=== PATIENT | male | born 1960 | race Caucasian/White ===

== ENCOUNTER 2018-08-18 22:27 | Inpatient (IN) | payer BC ==
[~2018-08-18] VITALS: Ht 167.6 cm; Wt 70.4 kg
[2018-08-18] MEDS ORDERED: CLONIDINE HCL 0.1 MG TAB PO ONE (23:00)
[2018-08-18 23:09] LABS: BASOPHILS # (AUTO) 0.1 (0.0-0.1); BASOPHILS % 0.9 % (0.0-1.0); EOSINOPHILS # (AUTO) 0.2 (0.0-0.4); EOSINOPHILS % 2.3 % (0.0-6.0); HEMATOCRIT 39.8 % (38.2-49.6); HEMOGLOBIN 13.7 g/dL (14.0-18.0); LYMPHOCYTES % 31.9 % (18.0-39.1); MEAN CORPUSCULAR HEMOGLOBIN 29.5 pg (28-32); MEAN CORPUSCULAR HGB CONC 34.4 g/dL (31-35); MEAN CORPUSCULAR VOLUME 85.8 fL (81-99); MONOCYTES # (AUTO) 0.5 (0.2-0.8); MONOCYTES % 4.8 % (4.4-11.3); NEUTROPHILS # (AUTO) 5.6 (2.1-6.9); NEUTROPHILS % 59.6 % (38.7-80.0); PLATELET COUNT 261 x10e3/uL (140-360); RED BLOOD COUNT 4.64 x10e6/uL (4.3-5.7); RED CELL DISTRIBUTION WIDTH 12.9 % (11.7-14.4)
[2018-08-18 23:27] LABS: BACTERIA,URINE RARE /HPF; BILIRUBIN,URINE NEGATIVE (NEGATIVE); CLARITY,URINE CLEAR (CLEAR); COLOR,URINE YELLOW (YELLOW); EPITHELIAL CELLS,URINE FEW /LPF; KETONES,URINE NEGATIVE (NEGATIVE); LEUKOCYTE ESTERASE ,URINE NEGATIVE (NEGATIVE); NITRITE,URINE NEGATIVE (NEGATIVE); PROTEIN,URINE DIPSTICK NEGATIVE (NEGATIVE); RBC,URINE 0-5 /HPF (0-5); URINE UROBILINOGEN 0.2 mg/dL (0.2 - 1); WBC,URINE (MAN) 0-5 /HPF (0-5)
--- NOTE | 2018-08-18 23:31 | Diagnostic Imaging Report ---
EXAM: CHEST 2 VIEWS, PA and lateral INDICATION: Shortness of breath COMPARISON: None FINDINGS: LINES/TUBES: None LUNGS: Emphysematous changes and peripheral reticulations. No consolidations. PLEURA: No effusions or pneumothorax. HEART AND MEDIASTINUM: Normal size and contour. BONES AND SOFT TISSUES: No acute findings. IMPRESSION: No consolidations. Possible chronic interstitial lung disease. Signed by: Dr. Darline Polanco M.D. on 08/18/2018 11:28 PM
--- NOTE | 2018-08-18 23:37 | NUR ---
repeat ekg done and given to dr sunshine for review
[2018-08-18 23:39] LABS: ALBUMIN 4.1 g/dL (3.5-5.0); ALBUMIN/GLOBULIN RATIO 1.1 (0.8-2.0); ANION GAP 12.4 mmol/L (8-16); CALCIUM 9.5 mg/dL (8.4-10.2); CREATININE, SERUM 1.48 mg/dL (0.72-1.25); MAGNESIUM 2.1 MG/DL (1.3-2.1); POTASSIUM 4.4 mmol/L (3.5-5.1)
[2018-08-18 23:45] LABS: CREATINE KINASE MB 2.8 ng/mL (0-5.0)
[2018-08-18 23:58] LABS: PARTIAL THROMBOPLASTIN TIME 27.5 seconds (23.8-35.5); PROTHROMBIN TIME 14.1 seconds (11.9-14.5)
[2018-08-19] VITALS (8 sets, daily range): BP systolic 147–181; BP diastolic 75–88
[2018-08-19] MEDS ORDERED: SODIUM CHLORIDE 0.9% 1000ML 1,000 ML IV STA (00:17)
[2018-08-19] MEDS ORDERED: SODIUM CHLORIDE 0.9% 1000ML 1,000 ML ONE (00:23)
[2018-08-19] MEDS ORDERED: IOPAMIDOL 370 MG/ML 200 ML INFUS..BTL INJ ONE ×2 (00:38→03:28)
[2018-08-19] MEDS ORDERED: SODIUM CHLORIDE 0.9% 50ML 50 ML ONE ×2 (00:38→03:28)
--- NOTE | 2018-08-19 01:53 | Diagnostic Imaging Report ---
EXAM: CT CHEST W INDICATION: Shortness of breath, positive d-dimer COMPARISON: None TECHNIQUE: Multidetector CT scanning of the chest was performed. Coronal and sagittal multiplanar reformations were obtained. Dose modulation, iterative reconstruction, and/or weight based adjustment of the mA/kV was utilized to reduce the radiation dose to as low as reasonably achievable. PE protocol performed. IV Contrast: 100 cc Isovue 370 CTDIvol has been reviewed. It is below the limits set by the Radiation Protocol Committee (RPC). FINDINGS: LUNGS AND AIRWAYS: The trachea and major bronchi are unremarkable. Bilateral smooth interlobular septal thickening. Faint groundglass opacities. Rounded nodular density in the left lung base measuring 1 cm. PLEURA: Trace right pleural effusion. HEART, MEDIASTINUM, VESSELS: The heart is within normal size limits. No abnormal pericardial effusion. No thoracic aortic aneurysm. Partially calcified subcarinal lymph node measuring 1.5 cm in short diameter. Several subcentimeter mediastinal and prevascular lymph nodes. The main pulmonary artery is within normal size limits. No evidence of a pulmonary embolism. UPPER ABDOMEN: Marked atherosclerotic disease of the partially visualized infrarenal abdominal aorta. The right kidney is smaller than the left kidney, partially visualized. There is a 1.6 cm exophytic cyst posterior medial aspect of the left kidney superior pole. MUSCULOSKELETAL: No acute findings. IMPRESSION: 1. No evidence of a pulmonary embolism. 2. Mild edema and trace right pleural effusion. 3. Left lower lobe nodular density measuring 1 cm is indeterminate for rounded atelectasis or true pulmonary nodule. A follow-up CT of the chest, low-dose protocol without IV contrast is recommended in 3 months. 4. Nonspecific prominent mediastinal lymphoid tissue. Signed by: Dr. Darline Polanco M.D. on 08/19/2018 1:50 AM
[2018-08-19] MEDS: NITROGLYCERIN 2% OINT 1 GM PKT TOP SCH ×2 (02:29→05:22)
[2018-08-19] MEDS ORDERED: NITROGLYCERIN 2% OINT 1 GM PKT ONE (02:30)
[2018-08-19] MEDS ORDERED: ACETAMINOPHEN 325 MG TAB PO PRN (02:30)
[2018-08-19] MEDS ORDERED: ONDANSETRON HCL INJ 2MG/ML 2ML 2 MG/ML VIAL IV PRN (03:00)
[2018-08-19] MEDS ORDERED: MORPHINE SULFATE 2 MG/ML SYR 1ML IV PRN (03:00)
--- OUTSIDE RECORDS SUMMARY | 2018-08-19 03:05 | XMS REPORT ---
Author Author [facility] Address Unknown Phone Unavailable Care Team Providers Care Market Research Interviewer Name Role Phone Makenzie CASTELLON Unavailable Unavailable Problems This patient has no known problems. Allergies, Adverse Reactions, Alerts This patient has no known allergies or adverse reactions. Medications This patient has no known medications. Results Test Description Test Time Test Comments Text Results Atomic Results Result Comments CT CHEST W 2018-08-19 01:36:00 [place] [id number] [place] [id number] Patient Name: KARI TRIPATHI MR #: [id number] : 1960 Age/Sex: 58/M Req #: [id number] Adm Physician: Ordered by: HARRIS CASTELLON MD Report #: [id number] Location: ER Room/Bed: Procedure: [id number] CT/CT CHEST W Exam Date: Exam Time: REPORT STATUS: Signed EXAM: CT CHEST W INDICATION: Shortness of breath, positive d-dimer COMPAR MOUNA: None TECHNIQUE: Multidetector CT scanning of the chest was performed. Coronal and sagittal multiplanar reformations were obtained. Dose modulation, iterative reconstruction, and/or weight based adjustment of the mA/kV was utilized to reduce the radiation dose to as low as reasonably achievable. PE protocol performed. IV Contrast: 100 cc Isovue 370 CTDIvol has been reviewed. It is below the limits set by the Radiation Protocol Committee (RPC). FINDINGS: LUNGS AND AIRWAYS: The trachea and major bronchi are unremarkable. Bilateral smooth interlobular septal thickening. Faint groundglass opacities. Rounded nodular density in the left lung base measuring 1 cm. PLEURA: Trace right pleural effusion. HEART, MEDIASTINUM, VESSELS: The heart is within normal size limits. No abnormal pericardial effusion. No thoracic aortic aneurysm. Partially calcified subcarinal lymph node measuring 1.5 cm in short diameter. Several subcentimeter mediastinal and prevascular lymph nodes. The main pulmonary artery is within normal size limits. No evidence of a pulmonary embolism. UPPER ABDOMEN: Marked atherosclerotic disease of the partially visualized infrarenal abdominal aorta. The right kidney is smaller than the left kidney, partially visualized. There is a 1.6 cm exophytic cyst posterior medial aspect of the left kidney superior pole. MUSCULOSKELETAL: No acute findings. IMPRESSION: 1. No evidence of a pulmonary embolism. 2. Mild edema and trace right pleural effusion. 3. Left lower lobe nodular density measuring 1 cm is indeterminate for rounded atelectasis or true pulmonary nodule. A follow-up CT of the chest, low-dose protocol without IV contrast is recommended in 3 months. 4. Nonspecific prominent mediastinal lymphoid tissue. Signed by: Dr. Aleksandr Ladd M.D. on 08/19/2018 1:50 AM Dictated By: ALEKSANDR LADD MD 9 Transcribed By: LAKSHMI on 08/19/18149 COPY TO: HARRIS CASTELLON MD CHEST 2 VIEWS 2018-08-18 23:27:00 [place] [address] Patient Name: KARI TRIPATHI MR #: [id number] : 1960 Age/Sex: 58/M Req #: [id number] Adm Physician: Ordered by: HARRIS CASTELLON MD Report #: [id number] Location: Room/Bed: Procedure: [id number] DX/CHEST 2 VIEWS Exam Date: 08/18/18 Exam Time: 2319 REPORT STATUS: Signed EXAM: CHEST 2 VIEWS, PA and lateral INDICATION: Shortness of breath COMPARISON: None FINDINGS: LINES/TUBES: None LUNGS: Emphysematous changes and peripheral reticulations. No consolidations. PLEURA: No effusions or pneumothorax. HEART AND MEDIASTINUM: Normal size and contour. BONES AND SOFT TISSUES: No acute findings. IMPRESSION: No consolidations. Possible chronic interstitial lung disease. Signed by: Dr. Aleksandr Ldad M.D. on 08/18/2018 11:28 PM Dictated By: ALEKSANDR LADD MD 27 Transcribed By: LAKSHMI on 08/18/182327 COPY TO: HARRIS CASTELLON MD
--- NOTE | 2018-08-19 03:35 | NUR ---
PT ARRIVING TO UNIT VIA WHEEL CHAIR, PT ALERT AND ORIENTED , NO DISTRESS NOTED, TELEMETRY NOTED, BED LOCKED AND LOW, PT DENIES NEEDS, CALL LIGHT IN REACH, INSTRUCTED TO CALL WITH NEEDS
--- NOTE | 2018-08-19 07:20 | NUR ---
pt resting in bed, no c/o pain or s/s distress noted. FURNITURE SPRAYER on unit.
[2018-08-19] MEDS ORDERED: FUROSEMIDE INJ 10 MG/ML 4 ML VIAL IV ONE (08:00)
[2018-08-19 08:49] LABS: CREATINE KINASE MB 2.4 ng/mL (0-5.0)
[2018-08-19] MEDS: FAMOTIDINE 20 MG/2 ML VIAL IV SCH ×2 (08:59→17:00)
[2018-08-19] MEDS: ASPIRIN 81 MG ENTERIC COATED PO SCH (08:59)
[2018-08-19] MEDS: METOPROLOL TARTRATE 25 MG TAB PO SCH ×2 (08:59→17:01)
[2018-08-19] MEDS ORDERED: AMLODIPINE BESYLATE 10 MG TAB PO SCH (09:00)
--- NOTE | 2018-08-19 09:14 | Consultation ---
DATE OF CONSULTATION: August 19, 2018 CARDIOLOGY CONSULTATION REASON FOR CONSULTATION: Heart failure. HISTORY OF PRESENT ILLNESS: This is a 58-year-old man with a history of tobacco use, who does not see physicians regularly, who presented to the emergency room with progressive worsening shortness of breath and hypertensive urgency. The patient states that he has had progressive worsening shortness of breath for the past 1 week, mild to moderate in intensity, worse with exertion. No associated chest pain, orthopnea, PND, or lower extremity swelling. The patient's checked his blood pressure and it was elevated and sent to the emergency department. Upon arrival here, the patient had systolic reading of 222. His first set of cardiac enzymes were within normal limits. REVIEW OF SYSTEMS: A 12-point review of systems was conducted, and was negative other than what is mentioned above in the HPI. PAST MEDICAL HISTORY: Tobacco use. PAST SURGICAL HISTORY: None recent. PAST FAMILY HISTORY: No premature coronary artery disease or sudden cardiac . SOCIAL HISTORY: No illicit drug use or alcohol use. Tobacco use currently. ALLERGIES: NO KNOWN DRUG ALLERGIES. MEDICATIONS: See medication reconciliation form. PHYSICAL EXAMINATION VITALS: Temperature is 97.9, heart rate is 65, respirations are 16, blood pressure is 158/76, oxygen saturation 94% on room air. GENERAL: He is a well-appearing middle-aged male in no apparent distress. HEENT: Head is normocephalic and atraumatic. Eyes: Extraocular muscles are intact. Conjunctivae are clear. NECK: No JVD. No bruits. CARDIOVASCULAR: Regular rate and rhythm. No murmurs appreciated. LUNGS: Diminished breath sounds at bilateral bases with scattered rales. ABDOMEN: Soft, nontender and nondistended. EXTREMITIES: No edema. VASCULAR: Diminished pulses. SKIN: Warm, dry and intact. NEUROLOGIC: No focal deficits noted. Cranial nerves grossly intact. PSYCHIATRIC: Normal mood and affect. LABORATORY DATA: Reviewed. Sodium 130, creatinine 1.48. BNP is 573. Troponin I is 0.042. A 12-lead EKG shows sinus tachycardia and left ventricular hypertrophy with repolarization abnormalities. CT of the chest showed mild edema, trace right pleural effusion. No evidence of pulmonary embolism. IMPRESSION 1. Congestive heart failure, unknown type. 2. Hypertensive urgency. 3. Chronic kidney disease. 4. Hyponatremia. 5. Abnormal electrocardiogram. 6. Tobacco abuse. RECOMMENDATIONS: The patient likely has acute pulmonary edema due to his hypertensive urgency. Amlodipine has been started, and will avoid nephrotoxic agents at this point in time. Will start Lasix for diuresis. Continue to trend cardiac enzymes. The patient has a 12-lead electrocardiogram showing left ventricular hypertrophy with strain pattern. No evidence of acute coronary syndrome ongoing. Smoking cessation is advised. A 2-D echocardiogram has been ordered. Will review this once it has been resulted. Job#: [id number] ALEX
--- NOTE | 2018-08-19 10:47 | NUR ---
SOCIAL WORK INITIAL ASSESSMENT Route Delivery Supervisor to bedside to discuss plan of care with patient/family. CM/SW role and care transitions discussed. Anticipated discharge plan discussed along with duration of care. CM/SW discussed patients right to make decisions in care. CM/SW work hours given. 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 Name and number was also written on the patients whiteboard. Patient verbalized understanding of discussion. CM will follow-up with ongoing discharge and transition of care needs.
[2018-08-19] MEDS ORDERED: NIFEDIPINE CR 30 MG TAB PO SCH (13:00)
--- NOTE | 2018-08-19 14:52 | NUR ---
Nutrition Screen Note RD Recommendation for Physician: -Continue cardiac diet as ordered Plan of Care: RD following, monitoring for tolerance and adequacy Nutrition reason for involvement: Nutrition Risk Trigger MST Primary Diagnose(s): 1. Congestive heart failure, unknown type. 2. Hypertensive urgency. PMH: CKD, tobacco use Ht: 66in Wt: 154.25lb BMI: 24.9kg/m2 IBW: 142lb RD Assessment: (08/19) Chart reviewed. Labs and meds reviewed. 58yo M, who is admitted for SOB and hypertensive urgency. Visited pt in the room. Pt reports good appetite with ~50-75% meal intake. 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 No GI complains noted. LBM 08/18, normal per pt. Pt denies any chewing or swallowing difficulty. No hx of DM. Will continue to monitor and follow. Current Diet: cardiac diet Malnutrition Evaluation (08/19/2018) The patient does not meet criteria for a specified degree of malnutrition at this time. Will re-evaluate at follow-up as appropriate. Diet Education Needs Assessment: Diet education not indicated. Nutrition Care Level: low Signed: Moira Arias, MS, RD, LD
[2018-08-19 15:50] LABS: CREATINE KINASE MB 1.6 ng/mL (0-5.0)
[2018-08-19] MEDS: FUROSEMIDE 20 MG TAB PO SCH (17:01)
--- NOTE | 2018-08-19 17:20 | NUR ---
Received patient via wheelchair from obs. AAOX4 to time,person, place, situation. Respirations even and unlabored. Tele #[phone] [id number]. Oriented patient to room. Instructed patient to use call light for assistance. Voiced understanding. Will continue to monitor.
--- NOTE | 2018-08-19 18:42 | NUR ---
Resting in bed, family at bedside. No s/s of acute distress noted. Report to be given to oncoming nurse.
--- NOTE | 2018-08-19 19:43 | NUR ---
Patient received lying in bed. Family at bedside. AAO x 3. Patient had no complaints of pain. Respirations even and non-labored. Fall precautions maintained. Patient instructed to call for assistance when needed. Call light within reach.
[2018-08-20] VITALS (9 sets, daily range): BP systolic 148–170; BP diastolic 72–87
[2018-08-20 04:14] LABS: BASOPHILS # (AUTO) 0.1 (0.0-0.1); BASOPHILS % 0.9 % (0.0-1.0); EOSINOPHILS # (AUTO) 0.3 (0.0-0.4); EOSINOPHILS % 2.7 % (0.0-6.0); HEMOGLOBIN 12.8 g/dL (14.0-18.0); LYMPHOCYTES # (AUTO) 3.1 (1.0-3.2); LYMPHOCYTES % 30.9 % (18.0-39.1); MEAN CORPUSCULAR HEMOGLOBIN 29.3 pg (28-32); MEAN CORPUSCULAR HGB CONC 34.6 g/dL (31-35); MEAN CORPUSCULAR VOLUME 84.7 fL (81-99); MONOCYTES # (AUTO) 0.7 (0.2-0.8); MONOCYTES % 6.5 % (4.4-11.3); NEUTROPHILS % 58.5 % (38.7-80.0); PLATELET COUNT 270 x10e3/uL (140-360); RED BLOOD COUNT 4.37 x10e6/uL (4.3-5.7)
[2018-08-20 04:31] LABS: ALBUMIN 3.5 g/dL (3.5-5.0); ALBUMIN/GLOBULIN RATIO 1.1 (0.8-2.0); CALCIUM 9.1 mg/dL (8.4-10.2); CHOL/HDL RATIO 6.3 (3.9-4.7); CREATININE, SERUM 1.72 mg/dL (0.72-1.25)
[2018-08-20] MEDS: FUROSEMIDE 20 MG TAB PO SCH ×2 (06:22→16:35)
--- NOTE | 2018-08-20 07:18 | NUR ---
Patient resting comfortably. Report given to oncoming nurse.
[2018-08-20] MEDS: ASPIRIN 81 MG ENTERIC COATED PO SCH (08:40)
[2018-08-20] MEDS: FAMOTIDINE 20 MG/2 ML VIAL IV SCH ×2 (08:40→16:35)
[2018-08-20] MEDS ORDERED: LOPRESSOR25 MG PO (08:41)
[2018-08-20] MEDS: METOPROLOL TARTRATE 25 MG TAB PO SCH (08:41)
[2018-08-20] MEDS ORDERED: NIFEDIPINE ER30 M1 PO (08:41)
[2018-08-20] MEDS ORDERED: ASPIRIN EC81 MG PO (08:41)
[2018-08-20] MEDS ORDERED: K DUR10 MEQ PO (08:41)
[2018-08-20] MEDS ORDERED: FUROSEMIDE20 MG PO (08:41)
[2018-08-20] MEDS ORDERED: NIFEDIPINE CR 30 MG TAB PO SCH ×2 (09:00)
[2018-08-20] MEDS: POTASSIUM CHLORIDE 10MEQ EA PO SCH (09:00)
[2018-08-20] MEDS ORDERED: FUROSEMIDE 20 MG TAB PO SCH (09:00)
[2018-08-20] MEDS ORDERED: POTASSIUM CHLORIDE 10MEQ EA PO SCH (09:00)
--- NOTE | 2018-08-20 12:39 | Progress Note ---
DATE: CARDIOLOGY PROGRESS NOTE SUBJECTIVE: Patient is without any symptoms this morning. He states that he does not have any shortness of breath, palpitations, cough, or dizziness. OBJECTIVE VITAL SIGNS: Temperature 97.5, pulse 60, respiratory rate 20, blood pressure 169/85, oxygen saturation 97% on room air. GENERAL: Alert and oriented x3, resting comfortably on the side of the bed with no distress. NECK: Supple. No JVD noted. CARDIOVASCULAR: Regular rate and rhythm. Systolic ejection murmur present. No S3 or S4 auscultated. No gallop. LUNGS: Clear to auscultation throughout. No wheezing. No rhonchi or crackles. ABDOMEN: Soft, nontender. EXTREMITIES: Lower extremities, no edema. 2+ pedal pulses. CARDIOVASCULAR MEDICATIONS 1. Nifedipine 60 mg p.o. daily. 2. Metoprolol 25 p.o. b.i.d. 3. Aspirin 81 mg p.o. daily. 4. Lasix 40 p.o. b.i.d. 5. Metoprolol 2.5 q.6 hours p.r.n. LABS: WBC 10.17, hemoglobin 12.8, hematocrit 37.0, platelet 270. Sodium 133, potassium 4.0, BUN 19, creatinine 1.72, glucose 98, calcium 9.1, magnesium 2.2. BNP 392.9. AST 13, ALT 11, alkaline phosphatase 89, LDL 137, HDL 31, total cholesterol 194. TELEMETRY: Sinus bradycardia. IMPRESSION 1. Systolic heart failure with ejection fraction of 30% to 35%. 2. Hypertensive urgency. 3. Chronic kidney disease with worsening creatinine. 4. Hyponatremia. 5. Abnormal electrocardiogram. 6. Tobacco use. RECOMMENDATIONS 1. Up titrate nifedipine. 2. Transition to metoprolol succinate upon discharge. 3. Consider LifeVest on discharge given low ejection fraction. This patient will need a left heart cath with findings of acute heart failure. We will continue to monitor very closely. Dictated by: Tosha Winston NP Job#: [id number] JULIA
[2018-08-20] MEDS: NICOTINE 14 MG/EA PATCH TOP SCH (16:33)
[2018-08-20] MEDS: SPIRONOLACTONE 25 MG TAB PO SCH (16:35)
--- NOTE | 2018-08-20 19:25 | NUR ---
Patient received sitting in bed. Family at bedside. AAO x 3. No acute distress noted. Call light within reach.
[2018-08-20] MEDS: METOPROLOL TARTRATE INJ 1 MG/ML VIAL IV PRN (21:41)
[2018-08-21] VITALS (7 sets, daily range): BP systolic 144–175; BP diastolic 68–83
--- NOTE | 2018-08-21 03:08 | NUR ---
Patient's BP elevated (165/75) with HR of 58 (patient 's HR usually runs low) . Dr. Fuchs notified. New order received.
[2018-08-21] MEDS: HYDRALAZINE HCL 20 MG/ML VIAL IV PRN ×2 (03:40→21:12)
[2018-08-21 04:00] LABS: BASOPHILS # (AUTO) 0.1 (0.0-0.1); BASOPHILS % 0.7 % (0.0-1.0); EOSINOPHILS # (AUTO) 0.2 (0.0-0.4); EOSINOPHILS % 2.4 % (0.0-6.0); HEMATOCRIT 36.6 % (38.2-49.6); LYMPHOCYTES # (AUTO) 2.7 (1.0-3.2); LYMPHOCYTES % 30.5 % (18.0-39.1); MEAN CORPUSCULAR HEMOGLOBIN 29.5 pg (28-32); MEAN CORPUSCULAR HGB CONC 35.5 g/dL (31-35); MONOCYTES # (AUTO) 0.5 (0.2-0.8); MONOCYTES % 6.1 % (4.4-11.3); NEUTROPHILS # (AUTO) 5.2 (2.1-6.9); NEUTROPHILS % 59.8 % (38.7-80.0); PLATELET COUNT 247 x10e3/uL (140-360); RED BLOOD COUNT 4.41 x10e6/uL (4.3-5.7); RED CELL DISTRIBUTION WIDTH 12.6 % (11.7-14.4)
[2018-08-21 04:20] LABS: ANION GAP 13.8 mmol/L (8-16); CALCIUM 8.9 mg/dL (8.4-10.2); CREATININE, SERUM 1.68 mg/dL (0.72-1.25); MAGNESIUM 2.1 MG/DL (1.3-2.1); POTASSIUM 3.8 mmol/L (3.5-5.1)
[2018-08-21] MEDS: METOPROLOL TARTRATE INJ 1 MG/ML VIAL IV PRN (06:13)
[2018-08-21] MEDS: FUROSEMIDE 20 MG TAB PO SCH ×2 (06:27→17:50)
[2018-08-21] MEDS ORDERED: NIFEDIPINE CR 30 MG TAB PO SCH (09:00)
[2018-08-21] MEDS: ASPIRIN 81 MG ENTERIC COATED PO SCH (09:23)
[2018-08-21] MEDS: LISINOPRIL 20 MG TAB PO SCH (09:23)
[2018-08-21] MEDS: SPIRONOLACTONE 25 MG TAB PO SCH (09:23)
[2018-08-21] MEDS: METOPROLOL SUCCINATE 25 MG TAB XL PO SCH (09:25)
[2018-08-21] MEDS: FAMOTIDINE 20 MG/2 ML VIAL IV SCH ×2 (09:26→17:50)
[2018-08-21] MEDS: POTASSIUM CHLORIDE 10MEQ EA PO SCH (09:26)
--- NOTE | 2018-08-21 11:30 | Progress Note ---
DATE CARDIOLOGY PROGRESS NOTE SUBJECTIVE: The patient does endorse paroxysmal nocturnal dyspnea yesterday that woke him up. Denies any shortness of breath now or chest pain. OBJECTIVE VITAL SIGNS: Temperature 96.4, pulse 60, respiratory rate 20, blood pressure 159/74, oxygen saturation 94% on room air. GENERAL: Alert and oriented x3, resting comfortably in bed. Does not appear to be in any acute distress. LUNGS: Clear to auscultation throughout. No wheezing, no rhonchi or crackles. CARDIOVASCULAR: Regular rate and rhythm. Systolic ejection murmur present. S3 noted. ABDOMEN: Soft, nontender. EXTREMITIES: Lower extremity no edema, 2+ pedal pulses. CARDIOVASCULAR MEDICATIONS 1. Metoprolol succinate 25 mg p.o. daily. 2. Lisinopril 20 mg p.o. daily. 3. Aldactone 50 mg p.o. daily. 4. Aspirin 81 mg p.o. daily. 5. Lasix 20 mg p.o. b.i.d. LABS: WBC 8.72, hemoglobin 13.3, hematocrit 36.6, platelets 247. Sodium 132, potassium 3.8, creatinine 1.68, GFR 42. BNP 479.5. TELEMETRY: Sinus antonella. IMPRESSION 1. Systolic heart failure with ejection fraction of 30 to 35%. 2. Hypertensive urgency on admission. 3. Chronic kidney disease. 4. Hyponatremia. 5. Abnormal electrocardiogram. 6. Tobacco use. RECOMMENDATION: Continue optimization of heart failure management. Maintain inpatient. This patient will need a LifeVest upon discharge. Patient will also need a diagnostic heart cath given acute systolic heart failure. Discontinue Procardia again today. Maintain on telemetry. Monitor electrolytes and replace as needed. We will continue to follow this patient very closely. Dictated by: Tosha Winston NP Job#: [id number] JULIA
--- NOTE | 2018-08-21 21:40 | NUR ---
Patient instructed about NPO status after midnight due to Left Heart Catheterization. Patient verbalized understanding.
--- NOTE | 2018-08-21 21:40 | NUR ---
Patient instructed about NPO status after midnight due to EGD/Colonoscopy. Patient verbalized understanding. Addendum: 08/22/18 at 0648 by Theodora Jackson RN Entry for wrong patient.
[2018-08-22] VITALS (12 sets, daily range): BP systolic 145–174; BP diastolic 64–81
[2018-08-22 03:56] LABS: BASOPHILS # (AUTO) 0.1 (0.0-0.1); BASOPHILS % 0.7 % (0.0-1.0); EOSINOPHILS # (AUTO) 0.2 (0.0-0.4); EOSINOPHILS % 2.7 % (0.0-6.0); HEMATOCRIT 35.5 % (38.2-49.6); HEMOGLOBIN 12.6 g/dL (14.0-18.0); LYMPHOCYTES # (AUTO) 2.9 (1.0-3.2); LYMPHOCYTES % 32.5 % (18.0-39.1); MEAN CORPUSCULAR HEMOGLOBIN 29.4 pg (28-32); MEAN CORPUSCULAR HGB CONC 35.5 g/dL (31-35); MEAN CORPUSCULAR VOLUME 82.8 fL (81-99); MONOCYTES # (AUTO) 0.5 (0.2-0.8); MONOCYTES % 5.8 % (4.4-11.3); NEUTROPHILS # (AUTO) 5.2 (2.1-6.9); NEUTROPHILS % 57.9 % (38.7-80.0); PLATELET COUNT 252 x10e3/uL (140-360); RED BLOOD COUNT 4.29 x10e6/uL (4.3-5.7); RED CELL DISTRIBUTION WIDTH 12.7 % (11.7-14.4)
[2018-08-22 04:15] LABS: ANION GAP 11.5 mmol/L (8-16); CALCIUM 8.5 mg/dL (8.4-10.2); CREATININE, SERUM 1.81 mg/dL (0.72-1.25); MAGNESIUM 2.2 MG/DL (1.3-2.1); POTASSIUM 3.5 mmol/L (3.5-5.1)
[2018-08-22] MEDS: FUROSEMIDE 20 MG TAB PO SCH ×2 (05:07→17:32)
[2018-08-22] MEDS ORDERED: SODIUM CHLORIDE 1 GM TAB PO ONE (08:00)
[2018-08-22] MEDS ORDERED: VERAPAMIL HCL 2.5 MG/ML 2 ML VIAL ONE (08:45)
[2018-08-22] MEDS ORDERED: IOPAMIDOL 370 MG/ML 200 ML INFUS..BTL INJ ONE (08:46)
[2018-08-22] MEDS ORDERED: HEPARIN SOD/SOD CHLORIDE 2,000 ML ONE (08:46)
[2018-08-22] MEDS ORDERED: LIDOCAINE HCL 1% LOCAL INJ 20 ML VIAL ONE (08:46)
[2018-08-22] MEDS ORDERED: FENTANYL CITRATE/PF 100MCG/2 ML INJ ONE (08:46)
[2018-08-22] MEDS ORDERED: MIDAZOLAM HCL 2 MG/2 ML VIAL ONE (08:46)
[2018-08-22] MEDS: LISINOPRIL 20 MG TAB PO SCH (08:52)
[2018-08-22] MEDS: FAMOTIDINE 20 MG/2 ML VIAL IV SCH ×2 (08:52→09:06)
[2018-08-22] MEDS: SPIRONOLACTONE 25 MG TAB PO SCH (09:00)
[2018-08-22] MEDS: ASPIRIN 81 MG ENTERIC COATED PO SCH (09:00)
--- NOTE | 2018-08-22 10:19 | NUR ---
patient up in bed, denies any pain , NPO, No distress noted, Dr Acharya had rounds, new orders in computer
--- NOTE | 2018-08-22 10:38 | NUR ---
patient off the unit for procedure, Alert with no distress
--- NOTE | 2018-08-22 12:39 | Consultation ---
DATE OF CONSULTATION: August 22, 2018 NEPHROLOGY CONSULTATION REASON FOR CONSULTATION: Hyponatremia. HPI: This is a 58-year-old male who came into the ED with underlying shortness of breath and found to be in hypertensive urgency. The patient reports having progressive shortness of breath over the past 1 week. While here, the patient was being treated for CHF exacerbation newly diagnosed. He is scheduled to have a left heart catheterization today. Nephrology consulted for hyponatremia. The patient denies any [id number] NSAIDs or herbal supplements. Denies drinking a lot of alcohol. No reports of hypothyroidism. The patient is not on any antipsychotics or antidepressant medications. The patient was seen and evaluated at bedside. Yesterday, he reports drinking about 4 to 5 liters of water. He has never had hyponatremia before. REVIEW OF SYSTEMS PERTINENT POSITIVES: Shortness of breath, edema. PERTINENT NEGATIVES: Denies any chest pain, palpitations, nausea, vomiting, diarrhea, dysuria, hematuria, frequency, urgency, lightheadedness, dizziness, abdominal pain, headache, cough, congestion, fever or any other complaints. The rest of the 14-point review of systems have been reviewed with the patient and are negative. ALLERGIES: NO KNOWN DRUG ALLERGIES. HOME MEDICATIONS 1. Aspirin 81 mg daily. 2. Furosemide 20 mg b.i.d. 3. Metoprolol 25 mg p.o. b.i.d. 4. Nifedipine ER 50 mg daily. 5. Potassium supplement. PAST MEDICAL HISTORY: He reports none. SURGICAL HISTORY: None. FAMILY HISTORY: Hypertension, diabetes. SOCIAL HISTORY: No drugs. No alcohol. He does smoke. LAB FINDINGS: White count 8.9, hemoglobin 12.6, hematocrit 35, platelets 252. Coagulation: PT 14, INR 1, PTT 27.5. Chemistries: Sodium 123, potassium 3.5, chloride 94, bicarb 21, anion gap 11, BUN 26, creatinine 1.8, magnesium 2.2. Urinalysis was found to be negative. IMAGING STUDIES: CT of the chest showed no evidence of pulmonary embolism. Mild edema and trace right pleural effusion. There is a questionable pulmonary nodule that needs to be further evaluated as an outpatient. Chest x-ray shows some possible chronic interstitial lung disease. PHYSICAL EXAMINATION GENERAL: In no acute distress. Alert and oriented x3, cooperative on examination. HEENT: Head: Normocephalic, atraumatic. Eyes: Pupils equal, round and reactive to light bilaterally. Extraocular movements intact bilaterally. NECK: Supple with good range of motion. Throat: No evidence of any erythema or exudates in the posterior pharynx. Has poor dentition. PULMONARY: Clear to auscultation bilaterally. No wheezing, no rales, no rhonchi, no crackles appreciated. CARDIOVASCULAR: Positive S1, S2. No murmurs, rubs or gallops appreciated. ABDOMEN: Soft, nondistended, nontender to palpation. Bowel sounds present. MUSCULOSKELETAL: Strength is 5/5 throughout. No evidence of any musculoskeletal deficit on examination. No weakness appreciated. NEUROLOGICAL: Cranial nerves II through XII are grossly intact. No evidence of any neurological deficit on exam. SKIN: Intact. Warm to touch. Good capillary refill. PSYCHIATRIC: Normal affect and mood. EXTREMITIES: No edema. Good range of motion throughout. IMPRESSION 1. Polydipsia leading to underlying hyponatremia. 2. Acute exacerbation of congestive heart failure. PLAN AT THIS TIME: The hyponatremia could be multifactorial from polydipsia as well as diuretics. Aldactone is notorious at causing hyponatremia as well. I reviewed his medications even from home. There is no etiology at this time except for the diuretics and polydipsia. We will get urine sodium, urine osmols, serum osmolarity, and serum uric acid. Sodium chloride tablet 2 grams p.o. x1 has been given. Will continue following with the primary team. I ordered a stat sodium level now and discussed with the nurse to tell me what the results are. May need to be on low-dose IV fluids. Job#: [id number]
--- NOTE | 2018-08-22 12:50 | Operative Report ---
DATE OF PROCEDURE: August 22, 2018 INDICATIONS FOR PROCEDURE: Stable angina and abnormal EKG. PREPROCEDURE ASSESSMENT: The patient's medical history, social history, prior experience with anesthesia were reviewed prior to the procedure. Patient was deemed to be an appropriate candidate for moderate sedation. The risks, benefits and alternatives to the procedure were explained to the patient, and informed consent was obtained as documented in the medical record. MEDICATIONS: Please see nursing notes for medications administered during the procedure. PROCEDURES PERFORMED 1. Coronary angiography. 2. Left heart catheterization. PROCEDURE DETAILS: The patient was brought to the cardiac catheterization laboratory in a fasting state. The right wrist was prepped and draped in a sterile fashion. A 6-Persian Slender sheath was inserted into the right radial artery using modified Seldinger technique. Coronary angiography was performed using a Marita 5-Persian radial catheter to engage both the left coronary and right coronary system. Left heart catheterization was performed using the same Marita radial catheter. All catheters were removed over a wire. The case ended without any complications. FINDINGS: Left main coronary artery has 60% to 70% diffuse tubular stenosis of the left main coronary artery with moderate to severe calcification. There is not significant involvement of the ostium of the LAD or left circumflex artery. The LAD is a large vessel that wraps around the apex. It has one significant diagonal-1 that is a large vessel as well. There is 60% to 70% lesion of the proximal portion of diagonal-1 as well as a 70% lesion of the mid LAD. Left circumflex is a large, non-dominant vessel. There is one large OM branch with about 70% proximal lesion. The distal left circumflex provides collaterals to the RCA. The distal LAD also provides collaterals to the RCA. The RCA is a very small vessel, diffusely diseased proximally and quickly ends in a ELECTRODE CLEANING MACHINE OPERATOR. Distal RCA shows a small RPDA that is 1.5 mm and fills via collaterals from the LAD and circumflex arteries. Left ventricular end-diastolic pressure was 8 mmHg. ESTIMATED BLOOD LOSS: 50. GRAFTS AND IMPLANTS: None. SPECIMEN REMOVED: None. COMPLICATIONS: None. RECOMMENDATIONS 1. TR band protocol with deflation at 30 minutes. 2. Continue optimal medical therapy and risk factor control. 3. Outpatient coronary artery bypass graft surgery referral. 4. Follow up in clinic 2 weeks post procedure. Thank you for this consult. We will continue to follow. Job#: [id number] MH
--- NOTE | 2018-08-22 13:02 | NUR ---
patient reached back from Manufacturing Test Engineer, AAOx3, denies any pain or SOB, no distress noted, Right arm radial site pressure dressing is intact and soft, No hematoma or bruises noted, call light in reach, family at bed side, lunch tray has ordered
[2018-08-22] MEDS: NICOTINE 14 MG/EA PATCH TOP SCH (14:10)
[2018-08-22] MEDS: HYDRALAZINE HCL 20 MG/ML VIAL IV PRN (17:29)
[2018-08-22] MEDS: POTASSIUM CHLORIDE 10MEQ EA PO SCH (17:32)
[2018-08-22] MEDS: METOPROLOL SUCCINATE 25 MG TAB XL PO SCH (17:32)
[2018-08-23] VITALS (7 sets, daily range): BP systolic 145–174; BP diastolic 65–77
--- NOTE | 2018-08-23 00:34 | Progress Note ---
DATE: August 22, 2018 CARDIOLOGY PROGRESS NOTE SUBJECTIVE: Patient had a coronary angiography today showing severe 3-vessel CAD. OBJECTIVE VITAL SIGNS: Temperature afebrile, pulse 60, respiratory rate , blood pressure 159/74, and satting 94% on room air. GENERAL: Well-developed, well-nourished white male, no acute distress. CARDIOVASCULAR: Regular rate and rhythm. No murmurs, rubs, or gallops. LUNGS: Clear to auscultation bilaterally. ABDOMEN: Soft, nontender, and nondistended. NEURO AND PSYCH: Alert and oriented to person, place, and time. Normal affect. CARDIOVASCULAR MEDICATIONS: Reviewed. LABORATORY DATA: Reviewed. TELEMETRY DATA: Reviewed. ASSESSMENT 1. Acute systolic heart failure with ejection fraction of 30% to 35%. 2. Hypertensive urgency on admission. 3. Chronic kidney disease. 4. Hyponatremia. 5. Abnormal electrocardiogram. 6. Tobacco use. 7. Multivessel coronary artery disease. RECOMMENDATIONS: Will continue to optimize medications. Angiogram showed multivessel CAD. Patient will follow up in clinic and will be referred as an outpatient for CABG or high-risk PCI after further discussion with patient and family. Hyponatremia is improving with diuresis. Thank you for this consult. We will continue to follow. Job#: [id number] ELIZABETH
[2018-08-23] MEDS: FUROSEMIDE 20 MG TAB PO SCH ×2 (05:46→16:45)
--- NOTE | 2018-08-23 07:16 | NUR ---
pt alert resp even and unlabored at this time no distress noted pt has no c/o pain when asked, call light reach will cont to monitor.
[2018-08-23] MEDS ORDERED: ALDACTONE25 MG PO (07:27)
[2018-08-23] MEDS ORDERED: NICODERM CQ1 EAC1 TOP (07:27)
[2018-08-23] MEDS ORDERED: LISINOPRIL20 MG PO (07:27)
[2018-08-23] MEDS ORDERED: FUROSEMIDE20 MG PO (07:27)
[2018-08-23 08:11] LABS: BASOPHILS # (AUTO) 0.1 (0.0-0.1); BASOPHILS % 0.7 % (0.0-1.0); EOSINOPHILS # (AUTO) 0.2 (0.0-0.4); EOSINOPHILS % 1.8 % (0.0-6.0); HEMATOCRIT 40.5 % (38.2-49.6); HEMOGLOBIN 14.1 g/dL (14.0-18.0); LYMPHOCYTES # (AUTO) 2.5 (1.0-3.2); LYMPHOCYTES % 26.1 % (18.0-39.1); MEAN CORPUSCULAR HEMOGLOBIN 29.6 pg (28-32); MEAN CORPUSCULAR HGB CONC 34.8 g/dL (31-35); MEAN CORPUSCULAR VOLUME 85.1 fL (81-99); MONOCYTES # (AUTO) 0.6 (0.2-0.8); MONOCYTES % 5.9 % (4.4-11.3); NEUTROPHILS # (AUTO) 6.2 (2.1-6.9); NEUTROPHILS % 65.1 % (38.7-80.0); PLATELET COUNT 286 x10e3/uL (140-360); RED BLOOD COUNT 4.76 x10e6/uL (4.3-5.7); RED CELL DISTRIBUTION WIDTH 13.1 % (11.7-14.4)
[2018-08-23 08:35] LABS: ANION GAP 13.9 mmol/L (8-16); CALCIUM 8.9 mg/dL (8.4-10.2); CREATININE, SERUM 2.08 mg/dL (0.72-1.25); MAGNESIUM 2.8 MG/DL (1.3-2.1); POTASSIUM 4.9 mmol/L (3.5-5.1)
[2018-08-23] MEDS: SPIRONOLACTONE 25 MG TAB PO SCH (09:00)
[2018-08-23] MEDS: ASPIRIN 81 MG ENTERIC COATED PO SCH (09:00)
[2018-08-23] MEDS: FAMOTIDINE 20 MG/2 ML VIAL IV SCH ×2 (09:00→16:45)
[2018-08-23] MEDS: LISINOPRIL 20 MG TAB PO SCH (09:00)
[2018-08-23] MEDS: METOPROLOL SUCCINATE 25 MG TAB XL PO SCH (09:00)
[2018-08-23] MEDS: NICOTINE 14 MG/EA PATCH TOP SCH (09:00)
[2018-08-23] MEDS: POTASSIUM CHLORIDE 10MEQ EA PO SCH (09:00)
[2018-08-23] MEDS: SODIUM CHLORIDE 0.9% 1000ML 1,000 ML IV SCH ×2 (09:15→23:59)
--- NOTE | 2018-08-23 16:31 | Progress Note ---
DATE: August 23, 2018 SUBJECTIVE: Patient is doing well today. He is status post left heart cath. Currently denies any PCI. Apparently, he was scheduled to follow up with cardiology as an outpatient for further management and care. OBJECTIVE VITAL SIGNS: Temperature is 97.8. Pulse 58. Respiratory rate is 18. Blood pressure is 149/65. Pulse ox is 95% on room air. LAB FINDINGS: White count 9.5, hemoglobin 14, hematocrit 41, platelets 286. His sodium is 131, potassium 4.9, chloride 103, bicarb 19. BUN is 34, and creatinine is 2. His creatinine upon admission was 1.5, slightly elevated. Magnesium is 2.8. PHYSICAL EXAMINATION GENERAL: Not in acute distress. Alert and oriented x3. Cooperative on examination. HEENT: Head is normocephalic and atraumatic. Eyes: Pupils are equal, round and reactive to light bilaterally. Extraocular movements are intact bilaterally. NECK: Supple with good range of motion. Throat: No evidence of any erythema or exudates in the posterior pharynx. Has poor dentition. PULMONARY: Clear to auscultation bilaterally. No wheezing, no rales, no rhonchi, no crackles appreciated. CARDIOVASCULAR: Positive S1, S2. No murmurs, rubs or gallops appreciated. ABDOMEN: Soft, nondistended, nontender to palpation. Bowel sounds present. MUSCULOSKELETAL: Strength is 5/5 throughout. No evidence of any musculoskeletal deficit on examination. No weakness appreciated. NEUROLOGICAL: Cranial nerves II through XII are grossly intact. No evidence of any neurological deficit on exam. SKIN: Intact. Warm to touch. Good capillary refill. PSYCHIATRIC: Normal affect and mood. EXTREMITIES: No edema. Good range of motion throughout. IMPRESSION 1. Polydipsia leading to underlying hyponatremia, now resolved. 2. Hyponatremia, resolved. 3. Acute exacerbation of congestive heart failure, status post left heart catheterization. PLAN: The creatinine is slightly elevated at 2. We will go ahead and give IV fluid hydration with NS at 75 mL per hour up to 1 liter to avoid contrast-induced nephropathy. His sodium has improved. Urine electrolytes were reviewed. At this time, we will hold lisinopril due to renal failure and due to recent contrast exposure. He will need to be restarted as an outpatient with low-dose CARLOS inhibitor, or he can be started upon discharge at 2.5 mg of lisinopril daily. Otherwise, we will get a.m. labs and continue to follow closely. Job#: [id number] LOIS
[2018-08-23] MEDS: DOXAZOSIN MESYLATE 2 MG TAB PO SCH (17:32)
--- NOTE | 2018-08-23 19:10 | NUR ---
RECEIVED THE PT IN REPORT.AAOX3.NO RESP.DISTRESS.NO PAIN VOICED.BED LOCKED AND IN LOWEST POSITION.PHONE AND CALL LIGHT WITHIN REACH.INSTRUCTED TO CALL FOR ASSISTANCE NEEDED.
--- NOTE | 2018-08-23 19:23 | NUR ---
report given to oncoming nurse
[2018-08-24] VITALS (7 sets, daily range): BP systolic 132–162; BP diastolic 59–72
[2018-08-24] MEDS: HYDRALAZINE HCL 20 MG/ML VIAL IV PRN (01:52)
--- NOTE | 2018-08-24 02:00 | NUR ---
BP 162/72.HYDRALAZINE 10 MG IV GIVEN.KEEP MONITOR THE PT.PT IS RESTING IN THE BED.
[2018-08-24 03:57] LABS: BASOPHILS % 0.5 % (0.0-1.0); EOSINOPHILS # (AUTO) 0.2 (0.0-0.4); HEMOGLOBIN 12.2 g/dL (14.0-18.0); LYMPHOCYTES # (AUTO) 1.8 (1.0-3.2); LYMPHOCYTES % 21.7 % (18.0-39.1); MEAN CORPUSCULAR HEMOGLOBIN 29.3 pg (28-32); MEAN CORPUSCULAR HGB CONC 34.9 g/dL (31-35); MEAN CORPUSCULAR VOLUME 84.1 fL (81-99); MONOCYTES # (AUTO) 0.5 (0.2-0.8); MONOCYTES % 6.1 % (4.4-11.3); NEUTROPHILS # (AUTO) 5.8 (2.1-6.9); NEUTROPHILS % 69.3 % (38.7-80.0); PLATELET COUNT 218 x10e3/uL (140-360); RED BLOOD COUNT 4.16 x10e6/uL (4.3-5.7); RED CELL DISTRIBUTION WIDTH 12.9 % (11.7-14.4)
--- NOTE | 2018-08-24 04:02 | NUR ---
Blood drawn from right ac and sent to the lab.pt tolerated well.
[2018-08-24 04:16] LABS: ANION GAP 13.4 mmol/L (8-16); CALCIUM 8.5 mg/dL (8.4-10.2); CREATININE, SERUM 2.25 mg/dL (0.72-1.25); MAGNESIUM 2.3 MG/DL (1.3-2.1); POTASSIUM 4.4 mmol/L (3.5-5.1)
[2018-08-24] MEDS: FUROSEMIDE 20 MG TAB PO SCH ×2 (06:03→17:11)
--- NOTE | 2018-08-24 06:50 | NUR ---
REPORT GIVEN TO THE ONCOMING RN.WALKING ROUNDS DONE.STABLE CONDITION.
[2018-08-24] MEDS: ASPIRIN 81 MG ENTERIC COATED PO SCH (08:41)
[2018-08-24] MEDS: AMLODIPINE BESYLATE 10 MG TAB PO SCH (08:41)
[2018-08-24] MEDS: FAMOTIDINE 20 MG/2 ML VIAL IV SCH ×2 (08:41→17:10)
[2018-08-24] MEDS: SPIRONOLACTONE 25 MG TAB PO SCH (08:41)
[2018-08-24] MEDS: NICOTINE 14 MG/EA PATCH TOP SCH (08:41)
[2018-08-24] MEDS: DOXAZOSIN MESYLATE 2 MG TAB PO SCH ×2 (08:41→17:11)
[2018-08-24] MEDS ORDERED: DOXAZOSIN MESYLATE 2 MG TAB PO SCH (09:00)
[2018-08-24] MEDS ORDERED: CARDURA2 MG PO (09:02)
[2018-08-24] MEDS ORDERED: NORVASC10 MG PO (09:02)
[2018-08-24] MEDS ORDERED: METOPROLOL TART25 MG PO (09:06)
--- NOTE | 2018-08-24 09:10 | NUR ---
PATIENT RESTING IN BED, ALERT WITH NO DISTRESS, DR BOLES HAD ROUNDS STATED, CALL HIM WITH BMP LAB ON EVENING, PATIENT IS ON IV FLUIDS NOW
[2018-08-24] MEDS: METOPROLOL TARTRATE 25 MG TAB PO SCH ×2 (10:43→17:11)
--- NOTE | 2018-08-24 10:54 | Progress Note ---
DATE: August 24, 2018 NEPHROLOGY PROGRESS NOTE SUBJECTIVE: Patient is doing well today with no complaints. His creatinine did slightly elevate today. He was on IV fluids ordered yesterday, and now it is discontinued. OBJECTIVE VITAL SIGNS: Temperature 99.3, pulse 82, respiratory rate is 20, blood pressure 151/68, pulse ox 96% on room air. GENERAL: Not in acute distress. Alert and oriented times 3. Cooperative on examination. HEENT: Head is normocephalic and atraumatic. Eyes: Pupils equal, round and reactive to light bilaterally. Extraocular movements intact bilaterally. NECK: Supple. Good range of motion. Throat with no evidence of any erythema or exudates in the posterior pharynx. Has poor dentition. PULMONARY: Clear to auscultation bilaterally. No wheezing. No rales. No rhonchi. No crackles appreciated. CARDIOVASCULAR: Positive S1 and S2. No murmurs, rubs or gallops appreciated. ABDOMEN: Soft, nondistended and nontender to palpation. Bowel sounds present. MUSCULOSKELETAL: Strength is 5/5 throughout. No evidence of any muscle deficit on examination. No weakness appreciated. NEUROLOGICAL: Cranial nerves II-XII are grossly intact. No evidence of any neurological deficits on exam. SKIN: Intact. Warm to touch. Good cap refill. PSYCHIATRIC: Normal affect and mood. EXTREMITIES: No edema. Good range of motion throughout. LAB FINDINGS: Show white count is 8.3, hemoglobin 12.2, hematocrit 35, and platelets of 218,000. Coagulation: PT 14, INR 1 and PTT is 27.5. Chemistry: Sodium is 128, potassium 4.4, chloride is 101, bicarb 18, BUN is 37, creatinine is 2.25. Magnesium is 2.3. IMPRESSION 1. Hyponatremia, now multifactorial from diuretics and also increased volume. 2. Acute exacerbation of congestive heart failure: Status post left heart catheterization. 3. Acute kidney injury, multifactorial: Secondary to contrast-induced nephropathy, as well as diuretic. PLAN: At this time, I reviewed his medications. He continues to be on Aldactone and Lasix b.i.d. He is on IV fluids, which I would rather hydrate him to avoid contrast-induced nephropathy if possible. The rising creatinine is a slow rise, but concerning and will be able to see the effects within 48-72 hours after the contrast exposure. At this time, we are going to hold on CARLOS and ARBs for now. Continue with low-dose IV fluid hydration. Repeat labs in the morning. There is no indication for at this time. Will continue to monitor closely. Job#: [id number] RI
[2018-08-24] MEDS ORDERED: METOPROLOL TARTRATE 25 MG TAB PO SCH (17:00)
[2018-08-24] MEDS: SODIUM CHLORIDE 0.9% 1000ML 1,000 ML IV SCH (17:10)
[2018-08-24 18:16] LABS: ANION GAP 11.5 mmol/L (8-16); CALCIUM 8.3 mg/dL (8.4-10.2); CREATININE, SERUM 2.37 mg/dL (0.72-1.25); POTASSIUM 4.5 mmol/L (3.5-5.1)
--- NOTE | 2018-08-24 18:30 | NUR ---
Notified lab BMP to Dr Acharya, new order to hold Lasix, run IV fluid 50cc/hr, repeat BMP in AM
--- NOTE | 2018-08-24 19:14 | Progress Note ---
DATE: August 24, 2018 CARDIOLOGY PROGRESS NOTE SUBJECTIVE: No major events overnight. No chest pain. OBJECTIVE: VITAL SIGNS: Temperature 98.8, pulse 71, respiratory rate 20, blood pressure 132/61, satting 96% on room air. GENERAL: White man in no acute distress. CARDIOVASCULAR: Regular rate and rhythm. No murmurs, rubs or gallops. LUNGS: Clear to auscultation bilaterally. ABDOMEN: Soft, nontender, nondistended. NEURO AND PSYCH: Alert and oriented to person, place and time. Normal affect. CARDIOVASCULAR MEDICATIONS: Reviewed. LABORATORY DATA: Reviewed. TELEMETRY DATA: Reviewed. ASSESSMENT AND PLAN: 1. Acute systolic heart failure with ejection fraction 30% to 35%. 2. Hypertensive urgency on admission. 3. Chronic kidney disease. 4. Hyponatremia. 5. Abnormal electrocardiogram. 6. Tobacco use. 7. Multivessel coronary artery disease including left main coronary artery disease. PLAN: Continue optimal medical therapy. Patient has been fitted for a LifeVest and is ready to be discharged from a cardiovascular standpoint. His renal function has worsened slightly today. Concerned for acute kidney injury. Continue Lasix 20 mg p.o. b.i.d. Hold spironolactone given poor renal function. No CARLOS inhibitors given acute kidney injury. Thank you for this consult. Will continue to follow. Job#: [id number] EV
--- NOTE | 2018-08-24 19:25 | NUR ---
PATIENT RECEIVED. PATIENT IS RESTING IN BED, AAOX3. RESP EVEN AND UNLABORED. NO ACUTE DISTRESS NOTED. PATIENT DENIES OF ANY PAIN. FAMILY AT BED SIDE. CALL LIGHT WITHIN REACH. INSTRUCT TO CALL FOR ASSISTANCE. BED LOW/LOCKED. CONTINUE TO MONITOR CLOSELY
[2018-08-24] MEDS ORDERED: MORPHINE SULFATE INJ 4 MG/ML INJ 1ML IV PRN (21:45)
[2018-08-25] VITALS: BP 136/63
[2018-08-25 04:00] VITALS: BP 173/76
[2018-08-25 04:03] LABS: BASOPHILS # (AUTO) 0.1 (0.0-0.1); BASOPHILS % 0.9 % (0.0-1.0); EOSINOPHILS # (AUTO) 0.2 (0.0-0.4); EOSINOPHILS % 2.9 % (0.0-6.0); HEMATOCRIT 32.9 % (38.2-49.6); HEMOGLOBIN 11.2 g/dL (14.0-18.0); LYMPHOCYTES # (AUTO) 2.2 (1.0-3.2); LYMPHOCYTES % 31.4 % (18.0-39.1); MEAN CORPUSCULAR HEMOGLOBIN 29.1 pg (28-32); MEAN CORPUSCULAR VOLUME 85.5 fL (81-99); MONOCYTES # (AUTO) 0.5 (0.2-0.8); MONOCYTES % 7.6 % (4.4-11.3); NEUTROPHILS # (AUTO) 3.9 (2.1-6.9); NEUTROPHILS % 56.8 % (38.7-80.0); PLATELET COUNT 204 x10e3/uL (140-360); RED BLOOD COUNT 3.85 x10e6/uL (4.3-5.7); RED CELL DISTRIBUTION WIDTH 13.1 % (11.7-14.4)
[2018-08-25 04:23] LABS: ANION GAP 13.1 mmol/L (8-16); CALCIUM 8.6 mg/dL (8.4-10.2); CREATININE, SERUM 2.09 mg/dL (0.72-1.25); MAGNESIUM 2.2 MG/DL (1.3-2.1); POTASSIUM 5.1 mmol/L (3.5-5.1)
[2018-08-25 04:28] VITALS: BP 136/63
[2018-08-25] MEDS: SODIUM CHLORIDE 0.9% 1000ML 1,000 ML IV SCH (06:54)
--- NOTE | 2018-08-25 07:59 | NUR ---
patient resting in bed, Alert with no distress, denies any pain this time, call light in reach, keep monitoring, on IV fluids
[2018-08-25 08:09] VITALS: BP 167/73
[2018-08-25] MEDS: AMLODIPINE BESYLATE 10 MG TAB PO SCH (08:42)
[2018-08-25] MEDS: FAMOTIDINE 20 MG/2 ML VIAL IV SCH (08:42)
[2018-08-25] MEDS: DOXAZOSIN MESYLATE 2 MG TAB PO SCH (08:42)
[2018-08-25] MEDS: METOPROLOL TARTRATE 25 MG TAB PO SCH (08:42)
[2018-08-25] MEDS: ASPIRIN 81 MG ENTERIC COATED PO SCH (08:42)
[2018-08-25] MEDS: NICOTINE 14 MG/EA PATCH TOP SCH (08:45)
[2018-08-25] MEDS ORDERED: K DUR10 MEQ PO (09:35)
[2018-08-25 09:59] VITALS: BP 167/73
[2018-08-25] MEDS: HYDRALAZINE HCL 20 MG/ML VIAL IV PRN (10:12)
--- NOTE | 2018-08-25 10:16 | Progress Note ---
DATE: August 25, 2018 NEPHROLOGY PROGRESS NOTE SUBJECTIVE: Patient is doing well today with no other complaints. He is having good urine output. Creatinine did drop as well. He is doing better. His potassium is 5.1 and sodium is 132. OBJECTIVE VITAL SIGNS: Temperature is 97.6, pulse 75, respiratory rate is 20, blood pressure 177/73, pulse ox 95% on room air. GENERAL: Not in acute distress. Alert and oriented times 3. Cooperative on examination. HEENT: Head is normocephalic and atraumatic. Eyes: Pupils equal, round and reactive to light bilaterally. Extraocular movements intact bilaterally. NECK: Supple. Good range of motion. Throat with no evidence of any erythema or exudates in the posterior pharynx. Has poor dentition. PULMONARY: Clear to auscultation bilaterally. No wheezing. No rales. No rhonchi. No crackles appreciated. CARDIOVASCULAR: Positive S1 and S2. No murmurs, rubs or gallops appreciated. ABDOMEN: Soft, nondistended and nontender to palpation. Bowel sounds present. MUSCULOSKELETAL: Strength is 5/5 throughout. No evidence of any muscle deficit on examination. No weakness appreciated. NEUROLOGICAL: Cranial nerves II-XII are grossly intact. No evidence of any neurological deficits on exam. SKIN: Intact. Warm to touch. Good cap refill. PSYCHIATRIC: Normal affect and mood. EXTREMITIES: No edema. Good range of motion throughout. LAB FINDINGS: Show white count is 6.9, hemoglobin 11.2, hematocrit 33, and platelets of 204,000. Chemistry: Sodium 132, potassium 5.1, chloride 106, bicarb 18, anion gap of 13, BUN is 35, creatinine is 2, which downtrended. Glucose 97. Magnesium 2.2. Urinalysis negative. IMPRESSION 1. Hyponatremia, multifactorial from diuretics, now improved: Sodium is 131. 2. Acute exacerbation of congestive heart failure: Status post left heart catheterization. 3. Acute kidney injury, multifactorial: Secondary to contrast-induced nephropathy, as well as diuretics. PLAN: The patient's creatinine did downtrend to 2 now, and it is reassuring that he will likely downtrend back to his normal baseline. His other electrolytes are stable. His sodium is 131. He can go back on his diuretics. His IV fluids seemed to have helped hydrate him to avoid BRITTANY. I would hold on the CARLOS and ARBs for now until he is being seen and monitored as an outpatient if his renal function improves and goes back to baseline before initiating any of those agents. I discussed this with the BILINGUAL SPEECH THERAPIST with the primary service. They agree with plan of care. Otherwise, from my standpoint he is good to be discharged and follow up in 1 week with repeat labs on BMP. Job#: [id number] RI
--- NOTE | 2018-08-25 11:11 | NUR ---
checked BP Manually its 160/60
--- NOTE | 2018-08-25 13:52 | NUR ---
Rechecked BP its 146/65 p-65, denies any pain ,no distress
--- NOTE | 2018-08-25 14:32 | NUR ---
Patient discharged home, BP-146/65 P-65, Denies any pain or SOB, IV canula removed with tip intact, no ss of infiltration , Tele box returned, prescription given, patient got all personnel belongings include life vest with him, he aware about f/up appointments, at bed side, transported via wheelchair to [facility],
--- NOTE | 2018-08-26 01:03 | Discharge Summary ---
ADMISSION DIAGNOSES 1. Hypertensive urgency without history of hypertension. 2. Acute kidney injury versus chronic kidney disease. 3. Hyponatremia. 4. Elevated beta-natriuretic peptide. 5. Tachycardia. DISCHARGE DIAGNOSES 1. Hypertensive urgency without history of hypertension. 2. Acute kidney injury versus chronic kidney disease. 3. Hyponatremia. 4. Elevated beta-natriuretic peptide. 5. Tachycardia. 6. Acute systolic congestive heart failure. 7. Tobacco use. HISTORY: None. SURGICAL HISTORY: Right inguinal hernia repair. FAMILY HISTORY: None. SOCIAL HISTORY: Patient admits to occasional alcohol use and smoking 1 to 1-1/2 packs per day. He denies illicit drug use. HOSPITAL COURSE: A 58-year-old male complains of shortness of breath that began Wednesday that went away and then happened again on the day prior to discharge. Each episode was about 5 minutes. He denies dizziness, palpitations, sweating, and chest pain. Yesterday, the shortness of breath started when he was showering. Nothing improved or worsens the pain. On admission, patient had a chest x-ray which showed no consolidation, possible chronic interstitial lung disease. CT of the chest showed no PE. Left lower lobe nodular density measuring 1 cm. Echo showed EF of 30% to 35%. EKG was sinus tachy at 112. Due to echo results, cardiology was consulted. Patient had a cath which showed left main coronary artery has 60% to 70% diffuse tubular stenosis of the left main coronary artery with moderate to severe calcification. No significant involvement of the ostium of the LAD or the left circumflex. There is 60% to 70% lesion of the proximal portion of diagonal 1 as well as 70% lesion of the mid LAD. There is 1 large OM branch with about 70% proximal lesion. The left circumflex provides collaterals to the RCA. Per cardiology, patient can follow up outpatient for a . He will follow up in 2 weeks as discussed. Patient was found to be hyponatremic throughout hospitalization and his kidneys remained injured and worsened after the heart cath. So, nephrology was consulted. Patient admits to drinking 2 L of fluids a day. Fluid restriction was advised. Patient was given IV fluids to help the kidneys. After couple of days, the kidneys started to recover. Patient remained hypertensive throughout hospitalization. Cardiology did not want nifedipine due to the acute heart failure and nephrology did not want the lisinopril due to the renal failure. So, patient was given metoprolol, Norvasc, and Cardura which seemed to control his blood pressure well. The patient will discharge home with 1. Norvasc 10 daily. 2. Aspirin 81 daily. 3. Doxazosin 4 b.i.d. 4. Lasix 20 b.i.d. 5. Metoprolol 25 b.i.d. 6. Nicotine 14 daily. 7. Potassium 20 daily. Patient understands discharge instructions and agrees to plan. Per cardio recommendation, patient was given a LifeVest which is at bedside and instructed on use. He will follow up with cardiology in 1 to 2 weeks and primary care in 1 to 2 weeks as well. Patient agrees to plan. Vital signs stable, patient afebrile. Dictated by Dee Arboleda NP OPAL MARR MD Job#: [id number]
== END 2018-08-25 14:15 | disposition home or self-care (01) | DRG 286 ==
LOC: ER 22:27 → ERHOLD 08-19 03:02 → IMCU 08-19 03:26 → MED/SURG2 08-19 17:14
PROVIDERS: ADMIT Internal Medicine; ATTEND Internal Medicine
PROC: 4A023N7 Measurement of Cardiac Sampling and Pressure, Left Heart, Percutaneous Approach (ICD-10-PCS; principal; 2018-08-22)
PROC: B2111ZZ Fluoroscopy of Multiple Coronary Arteries using Low Osmolar Contrast (ICD-10-PCS; 2018-08-22)
PROC: B2151ZZ Fluoroscopy of Left Heart using Low Osmolar Contrast (ICD-10-PCS; 2018-08-22)
DX: I16.0 Hypertensive urgency (principal); I50.21 Acute systolic (congestive) heart failure; E87.1 Hypo-osmolality and hyponatremia; N17.9 Acute kidney failure, unspecified; I25.118 Atherosclerotic heart disease of native coronary artery with other forms of angina pectoris; F17.210 Nicotine dependence, cigarettes, uncomplicated; N18.9 Chronic kidney disease, unspecified; R63.1 Polydipsia; N14.1 Nephropathy induced by other drugs, medicaments and biological substances; T50.8X5A Adverse effect of diagnostic agents, initial encounter; R91.8 Other nonspecific abnormal finding of lung field; Z79.82 Long term (current) use of aspirin; Z83.3 Family history of diabetes mellitus; Z82.49 Family history of ischemic heart disease and other diseases of the circulatory system
CPT/HCPCS: 36415; 71046; 71260; 80048; 80053; 80061; 81001; 82550; 82553; 83735; 83880; 83930; 83935; 84295; 84300; 84484; 84550; 85025; 85379; 85610; 85730; 93005; 93306; 93458; 99284; J0360; J1940; J2001; J2250; J7030; Q9967

== ENCOUNTER 2018-09-01 01:01 | Emergency (ER) | payer BC ==
[~2018-09-01] VITALS: Ht 167.6 cm; Wt 70.3 kg
[~2018-09-01 01:01] MED LIST: ALDACTONE25 MG PO; ASPIRIN EC81 MG PO; CARDURA2 MG PO; FUROSEMIDE20 MG PO; K DUR10 MEQ PO; LISINOPRIL20 MG PO; LOPRESSOR25 MG PO; METOPROLOL TART25 MG PO; NICODERM CQ1 EAC1 TOP; NIFEDIPINE ER30 M1 PO; NORVASC10 MG PO
[2018-09-01 01:32] LABS: BASOPHILS # (AUTO) 0.1 (0.0-0.1); BASOPHILS % 0.6 % (0.0-1.0); EOSINOPHILS # (AUTO) 0.3 (0.0-0.4); EOSINOPHILS % 3.6 % (0.0-6.0); HEMATOCRIT 32.6 % (38.2-49.6); HEMOGLOBIN 11.3 g/dL (14.0-18.0); LYMPHOCYTES # (AUTO) 2.1 (1.0-3.2); LYMPHOCYTES % 25.5 % (18.0-39.1); MEAN CORPUSCULAR HEMOGLOBIN 29.7 pg (28-32); MEAN CORPUSCULAR HGB CONC 34.7 g/dL (31-35); MEAN CORPUSCULAR VOLUME 85.6 fL (81-99); MONOCYTES # (AUTO) 0.5 (0.2-0.8); NEUTROPHILS # (AUTO) 5.2 (2.1-6.9); NEUTROPHILS % 64.1 % (38.7-80.0); PLATELET COUNT 217 x10e3/uL (140-360); RED BLOOD COUNT 3.81 x10e6/uL (4.3-5.7); RED CELL DISTRIBUTION WIDTH 12.5 % (11.7-14.4)
[2018-09-01 01:47] LABS: ALBUMIN 3.7 g/dL (3.5-5.0); ALBUMIN/GLOBULIN RATIO 1.2 (0.8-2.0); CALCIUM 9.2 mg/dL (8.4-10.2); CREATININE, SERUM 1.75 mg/dL (0.72-1.25)
[2018-09-01 02:20] LABS: CREATINE KINASE MB 0.7 ng/mL (0-5.0)
[2018-09-01 02:24] LABS: POTASSIUM 4.5 mmol/L (3.5-5.1)
[2018-09-01 02:25] LABS: ANION GAP 14.5 mmol/L (8-16)
== END 2018-09-01 02:42 | disposition home or self-care (01) ==
LOC: ER 01:01
DX: I10 Essential (primary) hypertension (principal); I25.10 Atherosclerotic heart disease of native coronary artery without angina pectoris; I50.9 Heart failure, unspecified; F17.210 Nicotine dependence, cigarettes, uncomplicated
CPT/HCPCS: 36415; 80053; 82550; 82553; 84484; 85025; 93005; 99283

== ENCOUNTER 2018-09-30 14:24 | Emergency (ER) | payer BC ==
[~2018-09-30] VITALS: Ht 167.6 cm; Wt 70.3 kg
[2018-09-30] MEDS ORDERED: HYDRALAZINE HCL 20 MG/ML VIAL IV ONE (14:45)
[2018-09-30] MEDS ORDERED: HYDRALAZINE HCL 25 MG TAB PO ONE (16:00)
[2018-09-30 17:55] VITALS: BP 167/59
== END 2018-09-30 18:24 | disposition home or self-care (01) ==
LOC: ER 14:24
DX: T78.3XXA Angioneurotic edema, initial encounter (principal); I10 Essential (primary) hypertension
CPT/HCPCS: 36415; 84484; 93005; 99283; J0360

== ENCOUNTER → 2019-01-04 | Day surgery (SDC) | payer BC ==
[2019-01-02 11:35] LABS: BASOPHILS # (AUTO) 0.1 (0.0-0.1); EOSINOPHILS # (AUTO) 0.2 (0.0-0.4); EOSINOPHILS % 2.7 % (0.0-6.0); HEMATOCRIT 38.3 % (38.2-49.6); HEMOGLOBIN 13.3 g/dL (14.0-18.0); LYMPHOCYTES % 22.6 % (18.0-39.1); MEAN CORPUSCULAR HEMOGLOBIN 29.3 pg (28-32); MEAN CORPUSCULAR HGB CONC 34.7 g/dL (31-35); MEAN CORPUSCULAR VOLUME 84.4 fL (81-99); MONOCYTES # (AUTO) 0.7 (0.2-0.8); MONOCYTES % 7.8 % (4.4-11.3); NEUTROPHILS # (AUTO) 5.7 (2.1-6.9); NEUTROPHILS % 65.4 % (38.7-80.0); PLATELET COUNT 269 x10e3/uL (140-360); RED BLOOD COUNT 4.54 x10e6/uL (4.3-5.7); RED CELL DISTRIBUTION WIDTH 13.5 % (11.7-14.4)
[2019-01-02 12:03] LABS: ALBUMIN 4.2 g/dL (3.5-5.0); ALBUMIN/GLOBULIN RATIO 1.2 (0.8-2.0); ANION GAP 11.8 mmol/L (8-16); CALCIUM 9.7 mg/dL (8.4-10.2); CREATININE, SERUM 1.55 mg/dL (0.72-1.25); POTASSIUM 3.8 mmol/L (3.5-5.1)
[2019-01-04] VITALS (12 sets, daily range): BP systolic 110–177; BP diastolic 66–88
[~2019-01-04] VITALS: Ht 165.1 cm; Wt 74.8 kg
[~2019-01-04] MED LIST changes: +ATORVASTATIN CA80 MG PO; +BRILINTA90 MG PO; +FENTANYL CITRATE/PF 100MCG/2 ML INJ ONE; +HEPARIN SOD (PORCINE) 1000 UNIT/ML 30ML ONE; +HEPARIN SOD/SOD CHLORIDE 2,000 ML ONE; +HYDRALAZINE HCL 20 MG/ML VIAL ONE; +HYDRALAZINE HCL25 MG PO; +IOPAMIDOL 300MG/ML 100 ML INFUS..BTL IV ONE; +LIDOCAINE HCL 2% LOCAL 20 ML VIAL ONE; +METOPROLOL SUCC50 MG PO; +MIDAZOLAM HCL 2 MG/2 ML VIAL ONE; +NITROGLYCERIN/D5W 200 MCG/ML 250 ML ONE; +PANTOPRAZOLE SO40 MG PO; +SODIUM CHLORIDE 0.9% 1000ML 1,000 ML ONE; +VERAPAMIL HCL 2.5 MG/ML 2 ML VIAL ONE
--- NOTE | 2019-01-04 11:01 | NUR ---
1101 Received pt to Rm #9 [id number] Peripheral fix SFA Dr Rodgers. Via rt Mynx.Site w/o oozing or hematoma, Back to baseline orientation Resp shallow and regular, Abdomen soft and non tender.Denies necessity to defecate or urinate. Bilateral PPx4 PT/DP. Iv infusing well w/o s/s infiltration. Family here and dc plans discussed and copies with pt. Aware of down time till 3pm and may then dc home. Aware of importance of f/o care No gross issues pain pallor pressure or dysrhythmia. ds/rn
--- NOTE | 2019-01-04 15:15 | NUR ---
1515 here No teaching issues regarding POC noted Aware of importance of follow-up. Rt Groin site reman dry and intact Has dc paper escorted to car per [facility] RN with w/c and w/o gross issues pain,pallor pressure or dysrhythmia. Vs stable. No active bleeding. to Mynx site rt groin.ppx4 PT/DP . Pt, suppose to f/o MD office 2wks and potential opposite leg fix per Dr Rodgers. ds/rn
--- NOTE | 2019-01-04 17:30 | Operative Report ---
DATE OF PROCEDURE: 01/04/2019 SURGEON: Jorge Rodgers MD CARDIAC CATHETERIZATION REPORT INDICATION FOR PROCEDURE: Peripheral arterial disease and claudication. PREPROCEDURE ASSESSMENT: The patient's medical history, social history, and prior experience with anesthesia was reviewed prior to the procedure. The patient was deemed to be an appropriate candidate for moderate sedation. The risks, benefits, and alternatives to treatment were explained to the patient prior to the procedure and informed consent was documented in the medical records. MEDICATIONS: Please see nursing notes for all medications administered during the procedure. PROCEDURES PERFORMED: 1. Catheter placement, abdominal aorta. 2. Catheter placement, third order. 3. Abdominal aortogram. 4. Bilateral lower extremity angiogram. 5. Femoral-popliteal arthrectomy. 6. Secondary thrombectomy. 7. Iliac stent. PROCEDURE DETAILS: The patient was brought to the cardiac catheterization laboratory in a fasting state. Right groin was prepped and draped in a sterile fashion. Access was obtained to the right common femoral artery using modified Seldinger technique and micropuncture equipment. Omni Flush catheter was placed over Dania Advantage wire into the abdominal aorta and abdominal aortogram was performed. Dania Advantage wire was then advanced into the contralateral iliac artery and Omni Flush catheter was advanced over the wire into the ostium of the left common femoral artery. Multiple digital subtraction images were performed of the left lower extremity to document the anatomy and plan for the procedure. The Omni Flush catheter was removed. The short 6-Maldivian sheath was exchanged for a long 45 cm up and over sheath over the Dania Advantage wire. Heparin was administered IV to achieve ACT near 300 throughout the procedure. The patient was already on dual antiplatelet therapy as an outpatient. For peripheral intervention of the left SFA CENTERLESS GRINDER OPERATOR, we used a Dania Advantage wire and a Seeker catheter to cross the CENTERLESS GRINDER OPERATOR into the proximal popliteal artery intraluminal position was confirmed and we exchanged the 0.035 Dania Advantage wire for a Wiper wire, which was advanced into the left anterior tibial artery all the way near the foot. A Seeker was removed and we decided to proceed with arthrectomy of the left SFA multiple runs of slow, medium, and high speeds were performed with a 1.5 mm solid bur. The device was then removed and angiography was performed after removal of CSI, the angiogram showed some residual thrombus in the left SFA. We performed secondary thrombectomy through the sheath with buddhist of brisk flow. We then proceed to perform a balloon angioplasty of the left SFA using a 5.0 x 220 mm balloon and overlapping inflations of 8 atmospheres followed by overlapping inflations of plutonic's 5.0 x 220, 60 x 150, and 60 x 120 mm balloons, all deployed at 8 to 10 atmospheres with inflations of 4 minutes; this resulted in excellent angiographic result with no significant residual dissection thrombus or spasm. Excellent 3-vessel runoff was noted into the left foot. We then measured the gradient across several left iliac lesions. There was initially a gradient of 89 mm across the midportion of the external iliac. We proceeded with direct stenting of ulcerated plaque with significant about 90% stenosis on followup angiogram. A 7.0 x 60 mm stent was deployed at 10 atmospheres; this resulted in excellent angiographic result. However, remeasuring the gradient revealed that there was still a residual gradient of about 40% to 50% mmHg across the distal iliac lesion. Given that this lesion was close to the femoral head, we decided to only treated with balloon angioplasty with a 7.0 x 100 mm balloon deployed at 10 atmospheres for 4 minutes. We recheck the gradient across the iliac artery. A residual gradient of only 18 mm was noted after the intervention. The up and over sheath was then exchanged for short 6-Maldivian sheath over the Dania Advantage wire and we performed a peripheral angiograph with runoff of the right lower extremity through the short 6-Maldivian sheath. A 6-Maldivian sheath was then removed and access site was closed using a Mynx vascular closure device followed by some manual pressure; this resulted in excellent hemostasis without any complications. FINDINGS: Left lower extremity: 1. Common iliac artery diffuse plaquing without significant stenosis. 2. Internal iliac artery is diffusely diseased and completely occluded. 3. External iliac artery, there is a 90% napkin ring lesion and ulcerated plaque in the external iliac followed by a long 60% to 70% tubular stenosis extending into the ostium of the left common femoral artery. 4. Common femoral artery, diffuse plaque, but no obstructive disease. 5. Left profunda femoris, no obstructive disease. Diffuse plaquing provide significant collaterals through the geniculate arteries to the left popliteal artery around the CENTERLESS GRINDER OPERATOR of the left SFA. 6. SFA large vessel diffusely diseased ostially and proximally and tapers quickly into a CENTERLESS GRINDER OPERATOR reconstitutes distally just above the popliteal artery. 7. Left popliteal artery mild plaquing. No significant stenoses. 8. Anterior tibial artery no significant disease. 9. Left tibioperoneal trunk, no significant disease. 10. Posterior tibial artery, no significant disease. 11. Peroneal artery, no significant disease. Right lower extremity: 1. Common iliac artery ulcerated plaquing and diffuse calcification, right common iliac artery. 2. Right internal iliac diffusely diseased CENTERLESS GRINDER OPERATOR. 3. Right external iliac artery diffuse plaquing and some ulcerated plaques, 70% lesion calcified. 4. Right common femoral artery. There is calcification and diffuse plaquing in the right common femoral artery and ulcerated plaque in the midportion 50% to 60% stenosis. Right profunda femoris, mild diffuse plaquing. No obstructive stenoses. 5. SFA CENTERLESS GRINDER OPERATOR in the proximal portion, reconstitutes distally above the origin of the popliteal artery. Popliteal: Mild plaquing. No significant stenosis. 6. Right anterior tibial. There is 70% to 80% lesion in the proximal portion of the right anterior tibial artery. 7. TP trunk, no significant stenosis. 8. Posterior tibial, no significant stenosis in the proximal portion. 9. Peroneal small vessel, no significant stenosis in the proximal portion. ESTIMATED BLOOD LOSS: 50 mL. GRAFTS AND IMPLANTS: One bare metal stent in the left external iliac artery. SPECIMEN REMOVED: None. COMPLICATIONS: None. FINAL RECOMMENDATIONS: 1. Bedrest as prescribed. 2. Continue aspirin and ticagrelor. 3. Continue optimal medical therapy and risk factor control. 4. Follow up in clinic 2 weeks post procedure. We will need a staged procedure to the right lower extremity in the future. MD JEANNA Taylor/AGNIESZKA /[id number]
== END | disposition home or self-care (01) ==
LOC: CATH LAB 06:08
PROVIDERS: ATTEND Internal Medicine
DX: I70.213 Atherosclerosis of native arteries of extremities with intermittent claudication, bilateral legs (principal); I25.10 Atherosclerotic heart disease of native coronary artery without angina pectoris; I11.0 Hypertensive heart disease with heart failure; I50.22 Chronic systolic (congestive) heart failure; I65.23 Occlusion and stenosis of bilateral carotid arteries; Z01.812 Encounter for preprocedural laboratory examination; Z79.82 Long term (current) use of aspirin; Z82.49 Family history of ischemic heart disease and other diseases of the circulatory system
CPT/HCPCS: 36415; 37186; 37221; 37225; 75625; 80053; 85025; C1724; C1725; C1760; C1769 ×2; C1876; C1887 ×2; C2623; J0360; J1644; J2001; J2250; J7030; Q9967; 36247; 75716

== ENCOUNTER → 2019-03-01 | Day surgery (SDC) | payer BC ==
[2019-02-27 10:45] LABS: BASOPHILS # (AUTO) 0.1 (0.0-0.1); EOSINOPHILS # (AUTO) 0.5 (0.0-0.4); EOSINOPHILS % 4.5 % (0.0-6.0); HEMATOCRIT 39.8 % (38.2-49.6); HEMOGLOBIN 13.2 g/dL (14.0-18.0); LYMPHOCYTES # (AUTO) 2.9 (1.0-3.2); LYMPHOCYTES % 26.1 % (18.0-39.1); MEAN CORPUSCULAR HEMOGLOBIN 29.1 pg (28-32); MEAN CORPUSCULAR HGB CONC 33.2 g/dL (31-35); MEAN CORPUSCULAR VOLUME 87.7 fL (81-99); MONOCYTES # (AUTO) 0.7 (0.2-0.8); MONOCYTES % 6.6 % (4.4-11.3); NEUTROPHILS # (AUTO) 6.8 (2.1-6.9); NEUTROPHILS % 61.3 % (38.7-80.0); PLATELET COUNT 317 x10e3/uL (140-360); RED BLOOD COUNT 4.54 x10e6/uL (4.3-5.7); RED CELL DISTRIBUTION WIDTH 14.3 % (11.7-14.4)
[2019-02-27 11:16] LABS: INR 0.92; PROTHROMBIN TIME 12.9 seconds (11.9-14.5)
[2019-02-27 11:28] LABS: ALBUMIN 4.5 g/dL (3.5-5.0); ALBUMIN/GLOBULIN RATIO 1.3 (0.8-2.0); ANION GAP 16.3 mmol/L (8-16); CALCIUM 10.5 mg/dL (8.4-10.2); CREATININE, SERUM 1.74 mg/dL (0.72-1.25); POTASSIUM 5.3 mmol/L (3.5-5.1)
--- NOTE | 2019-02-27 14:02 | NUR ---
NOTIFIED DR. Bryan KRISHNA OF POTASSIUM 5.3, CREATININE 1.74, ESTIMATED GFR 40, WBC 11.09. DR. Bryan KRISHNA ORDERED REPEAT POTASSIUM ON DAY OF PROCEDURE.
[2019-03-01] VITALS (10 sets, daily range): BP systolic 127–168; BP diastolic 61–78
[~2019-03-01] VITALS: Ht 165.1 cm; Wt 74.8 kg
[~2019-03-01] MED LIST changes: +FUROSEMIDE40 MG PO; -HEPARIN SOD (PORCINE) 1000 UNIT/ML 30ML ONE; -HYDRALAZINE HCL 20 MG/ML VIAL ONE; -NITROGLYCERIN/D5W 200 MCG/ML 250 ML ONE
--- NOTE | 2019-03-01 11:21 | NUR ---
1121Bedside report received from ADRIANA Kilpatrick. Identiferx2 Peripheral fix Dc at 1315pm after flat time. Alert oriented and appropriate, PERRLA, respirations even and unlabored to room air. Pulses x4 extremities equal and strong. Pedal pulses PT/DP x4 Cap fill brisk < 3 sec. Skin warm and dry integrity appears D/I No hematoma to left groin MYNX site.NO gross issues pain pallor pressure or dysrhythmia.. IV 20g to left hand presents healthy w/o s/s of infiltration or complaint.Infusing at 100cchr via iv controller. For 500cc instill. Abdomen soft and supple. pt offered toileting, denies need to urinate or defecate. No personal affects with patient. Family off campus will return for parts picker. Pt and family verbalizes understanding of POC. Currently w/o complaint of pain or need. shay/adriana
--- NOTE | 2019-03-01 12:00 | NUR ---
1200 Notified Trudi of pt DC approx 115 will arrive 30min early for dc teaching. ds/rn
--- NOTE | 2019-03-01 13:15 | NUR ---
1315pm Pt meets DC criteria. Left assessed for s/s of complication and presence of hematoma. Additional 20min hold over mynx with [place], RDMS checked site and Caroline patch applied stasis. is achieved and light pressure dressing with Tegaderm x2 and 4x4 roll. warm, dry, no discolor, and pulses present. IV removed from XXXX. Distal tip appears intact. VS WNL. Pt denies pain, sob, or need at this time. Family arrived [facility]. Review of discharge paperwork and follow up instructions. verbalized understanding. Pt to wheelchair and transported to front of hospital. Transferred to private vehicle under own strength w/o incident with DC paperwork in hand. ds/rn
--- NOTE | 2019-03-20 19:14 | Operative Report ---
DATE OF PROCEDURE: 03/01/2019 SURGEON: Jorge Rodgers MD Cardiology Catheterization Report INDICATION FOR PROCEDURE: Claudication. PROCEDURES PERFORMED: 1. Catheter placement, abdominal aorta. 2. Catheter placement, third order. 3. Abdominal aortography. 4. Bilateral lower extremity angiography. 5. Arthrectomy and percutaneous transluminal angioplasty of right superficial femoral artery chronic total occlusions. 6. Secondary thrombectomy. 7. Vascular closure device. PROCEDURE IN DETAIL: The patient was brought to the cardiac catheterization laboratory in a fasting state. Left groin was prepped and draped in a sterile fashion. A 6-Venezuelan sheath was inserted in the left common femoral artery using ultrasound and fluoroscopic guidance without significant difficulty. A 5-Venezuelan Omni Flush catheter was placed in the abdominal aorta through the 6-Venezuelan sheath. Abdominal aortography was performed. [place] Advantage wire was used through the Omni Flush catheter to cross over into the right common iliac and into the right common femoral artery. The Omni Flush catheter was advanced over wire. Multiple views of the right lower extremity were taken using DSA imaging when required, which demonstrated a long LIMNOLOGIST of the right superficial femoral artery as well as a 50% lesion of the ostial right anterior tibial artery. We decided to proceed with the intervention. The 5-Venezuelan short sheath was exchanged for a 6-Venezuelan 45 cm Destination STEPHENS sheath over the [place] Advantage wire. Anticoagulation was given to maintain ACT over 300. The combination of NavyCross-Support catheter and the [place] Advantage guidewire to cross the LIMNOLOGIST of the SFA without much difficulty. Given the ease of crossing, some concern for thrombus, we decided to perform primary thrombectomy. Using a 6-Venezuelan Pronto LP thrombectomy catheter followed by arthrectomy using Diamondback 1.5 x 145 solid bur. There was some evidence of post arthrectomy thrombus. We performed another half of the Pronto LP, followed by balloon dilation with 6 x 220 mm Ultraverse balloon. Lesion yielded without difficulty and we followed predilation with application of 6 x 150 and 6 x 120 mm Lutonix drug-coated balloon to cover the SFA LIMNOLOGIST, which resulted in an excellent angiographic result without significant dissection thrombus or spasm. On the pullback of the Destination sheath, there was noted to be 40 mm gradient in the external iliac artery. There was a focal lesion that was calcified and may be 70% angiographically that was seen in the right external iliac artery. However, given the patient's poor renal function and limitations of contrast use, we deferred this lesion for future. Angiography of left lower extremity was performed after the Destination sheath was exchanged for a short 6-Venezuelan sheath. Arteriotomy site was closed using a Mynx closure device. The case ended without any complications. The patient tolerated the procedure well. FINDINGS: 1. Right SFA LIMNOLOGIST with successful peripheral intervention, arthrectomy, and COLD MEAT CHEF. 2. Residual right external iliac 20% lesions. 3. An 80% right renal stenosis. ESTIMATED BLOOD LOSS: 50 mL. GRAFTS AND IMPLANTS: None. SPECIMEN REMOVED: None. COMPLICATIONS: None. FINAL RECOMMENDATION: 1. Continue dual antiplatelet therapy, aspirin, and ticagrelor. 2. Follow up in clinic 2 weeks postprocedure. MD JEANNA Taylor/AGNIESZKA /[id number]
--- NOTE | 2019-04-24 14:38 | Operative Report ---
DATE OF PROCEDURE: 03/01/2019 SURGEON: Jorge Rodgers MD INDICATIONS FOR PROCEDURE: Claudication, peripheral arterial disease. PREPROCEDURE ASSESSMENT: The risks, benefits, and alternatives to treatment were explained to the patient prior to the procedure and informed consent was obtained as documented in the medical record. The patient was deemed to be an appropriate candidate for moderate sedation. MEDICATIONS: Please see nursing notes for medications administered during the procedure. PROCEDURES PERFORMED: 1. Abdominal aortography. 2. Third-order catheter replacement. 3. Bilateral lower extremity peripheral angiography. 4. Arthrectomy of right SFA and popliteal. 5. Secondary thrombectomy. 6. HAND GLUER AND SLICER of right SFA. 7. Left femoral angiography. 8. Vascular closure device. 9. Moderate sedation 90 minutes. PROCEDURE DETAILS: The patient was brought to the cardiac catheterization laboratory in a fasting state. Left groin was prepped and draped in a sterile fashion. A 6-Burkinan short sheath was inserted in the left common femoral artery using modified Seldinger technique without any significant complication. A 5-Burkinan Omni Flush catheter was advanced into the abdominal aorta and abdominal aortography was performed. A 0.035 inch [place] Advantage wire was advanced through the Omni Flush catheter into the contralateral iliac artery and Omni Flush catheter was then advanced over this wire into the right common femoral artery. Selective angiography was performed of right lower extremity using digital subtraction imaging as required. This demonstrated 100% FOOD SAFETY AUDITOR of the right SFA as well as [id number] disease of proximal right anterior tibial artery. We decided to proceed with intervention of right SFA given significant claudication symptoms. The Omni Flush catheter was removed and a short 6-Burkinan sheath was then exchanged for 45 cm destination sheath, which was advanced over the previously positioned [place] Advantage wire. A 0.035 Terumo NaviCross catheter and Glidewire were used to cross the FOOD SAFETY AUDITOR of the right SFA. The [place] Advantage wire was removed and exchanged for a ViperWire, which was positioned into the posterior tibial artery. Arthrectomy was performed using a Diamondback 360, 1.5 solid bur at low-medium and high speeds. There was some residual thrombus after atherectomy, which was aspirated through the long sheath with manual aspiration. This resulted in a good angiographic result. We then proceeded with HAND GLUER AND SLICER of the right SFA using Ultraverse 6 x 220 mm balloon deployed at nominal pressures, followed by Lutonix 6.0 x 120 and 6.0 x 150 mm drug-coated balloon to treat the entire portion of the FOOD SAFETY AUDITOR. This was resulted in an excellent angiographic result without any significant dissection, thrombus, or spasm. The patient tolerated the procedure well. The patient was already receiving dual-antiplatelet therapy with aspirin and Brilinta. ACT near 300 was maintained throughout the procedure with IV boluses of heparin as needed. The long sheath was then removed and exchanged for a short 6-Burkinan sheath and peripheral angiography of the left lower extremity was performed with runoff with a 6-Burkinan short sheath. Access site was deemed to be an appropriate for vascular closure device and access site was closed using the Mynx vascular closure device. Case ended without any complications. The patient tolerated the procedure well. SIGNIFICANT FINDINGS: 1. 70% lesion of the right external iliac artery. 2. 100% FOOD SAFETY AUDITOR of the right superficial femoral artery, long segment FOOD SAFETY AUDITOR about 200 mm or greater. 3. 50% stenosis of the proximal right anterior tibial artery. 4. Patent left SFA previously treated FOOD SAFETY AUDITOR without any significant re-stenosis. GRAFTS AND IMPLANTS: None. SPECIMEN REMOVED: None. COMPLICATIONS: None. ESTIMATED BLOOD LOSS: 50 mL. FINAL RECOMMENDATIONS: 1. Continue dual-antiplatelet therapy as indicated with aspirin and Brilinta. 2. Continue optimal medical therapy and risk factor control. 3. Follow up in the office 2 weeks postprocedure. MD JEANNA Taylor/BARBARAL /[id number]
== END | disposition home or self-care (01) ==
LOC: CATH LAB 07:26
PROVIDERS: ATTEND Internal Medicine
DX: I70.211 Atherosclerosis of native arteries of extremities with intermittent claudication, right leg (principal); I70.92 Chronic total occlusion of artery of the extremities; I70.1 Atherosclerosis of renal artery; Z01.812 Encounter for preprocedural laboratory examination
CPT/HCPCS: 36415 ×2; 37184; 37225; 75625; 80053; 84132; 85025; 85610; C1724; C1725; C1760; C1769 ×2; C1887 ×2; C2623 ×2; J2001; J2250; J3010; J7030; Q9967; 36247; 37186; 75716; C1757

== ENCOUNTER → 2019-08-25 | Outpatient (CLI) | payer BC ==
[~2019-08-25] VITALS: Ht 165.1 cm; Wt 74.8 kg
[~2019-08-25] MED LIST changes: -FENTANYL CITRATE/PF 100MCG/2 ML INJ ONE; -HEPARIN SOD/SOD CHLORIDE 2,000 ML ONE; -IOPAMIDOL 300MG/ML 100 ML INFUS..BTL IV ONE; -LIDOCAINE HCL 2% LOCAL 20 ML VIAL ONE; -MIDAZOLAM HCL 2 MG/2 ML VIAL ONE; -SODIUM CHLORIDE 0.9% 1000ML 1,000 ML ONE; +SPIRONOLACTONE25 MG PO; -VERAPAMIL HCL 2.5 MG/ML 2 ML VIAL ONE
[2019-08-25 11:27] LABS: BASOPHILS # (AUTO) 0.1 (0.0-0.1); BASOPHILS % 0.7 % (0.0-1.0); EOSINOPHILS # (AUTO) 0.2 (0.0-0.4); EOSINOPHILS % 1.8 % (0.0-6.0); HEMATOCRIT 36.6 % (38.2-49.6); HEMOGLOBIN 12.6 g/dL (14.0-18.0); LYMPHOCYTES # (AUTO) 1.9 (1.0-3.2); LYMPHOCYTES % 17.7 % (18.0-39.1); MEAN CORPUSCULAR HEMOGLOBIN 29.9 pg (28-32); MEAN CORPUSCULAR HGB CONC 34.4 g/dL (31-35); MEAN CORPUSCULAR VOLUME 86.7 fL (81-99); MONOCYTES # (AUTO) 0.7 (0.2-0.8); MONOCYTES % 6.2 % (4.4-11.3); NEUTROPHILS # (AUTO) 7.9 (2.1-6.9); NEUTROPHILS % 72.7 % (38.7-80.0); PLATELET COUNT 281 x10e3/uL (140-360); RED BLOOD COUNT 4.22 x10e6/uL (4.3-5.7); RED CELL DISTRIBUTION WIDTH 13.4 % (11.7-14.4)
[2019-08-25 11:42] LABS: INR 0.99; PROTHROMBIN TIME 13.6 seconds (11.9-14.5)
[2019-08-25 11:53] LABS: ALBUMIN 4.2 g/dL (3.5-5.0); ALBUMIN/GLOBULIN RATIO 1.3 (0.8-2.0); ANION GAP 19.2 mmol/L (8-16); CALCIUM 9.4 mg/dL (8.4-10.2); CREATININE, SERUM 1.88 mg/dL (0.72-1.25); POTASSIUM 4.2 mmol/L (3.5-5.1)
== END ==
LOC: LAB 05:00 → EDSTATUS 08-29 14:00
PROVIDERS: ATTEND Internal Medicine
DX: Z01.818 Encounter for other preprocedural examination (principal); I73.9 Peripheral vascular disease, unspecified
CPT/HCPCS: 36415; 80053; 85025; 85610